=== PATIENT | male | born 1945 | race Caucasian/White ===

== ENCOUNTER 2019-06-05 14:55 | Inpatient (IN) ==
[2019-06-05] MEDS ORDERED: NS 1,000 ML IV ONE ×2 (15:14→16:34)
[2019-06-05 15:15] LABS: BASO# 0.02 X1000 (0.0-0.2); BASO% 0.1 % (0.0-0.8); EOS# 0.02 X1000 (0.0-0.7); EOS% 0.1 % (0.0-10.0); HEMATOCRIT 45.9 % (42.0-52.0); HEMOGLOBIN 15.1 g/dL (14.0-18.0); IMM GRAN# 0.03 X1000 (0.0-0.04); IMM GRAN% 0.2 % (0.0-0.5); LYMPH# 1.04 X1000 (1.2-3.4); LYMPH% 7.5 % (20.5-51.1); MCH 31.1 PG (27-31); MCHC 32.9 g/dL (33-37); MCV 94.4 FL (81-99); MONO# 0.87 X1000 (0.11-0.59); MONO% 6.3 % (1.7-9.3); MPV 8.6 FL (7.4-10.4); NEUT# 11.84 X1000 (1.4-6.5); NEUT% 85.8 % (42.2-75.2); PLT 340 X1000 (130-400); RBC 4.86 XMIL (4.7-6.1); RDW 12.2 % (11.5-14.5); WBC 13.82 X1000 (4.8-10.8)
[2019-06-05 15:19] LABS: INR 0.95; PROTIME 13.1 Seconds (11.0-16.0)
[2019-06-05 15:20] LABS: PTT 37.6 Seconds (22.3-41.8)
--- NOTE | 2019-06-05 15:27 | Diag Imaging Result Doc PS360 ---
EXAM: CT HEAD W/O CONTRAST - 06/05/2019 HISTORY: r/o stroke TECHNIQUE: CT head without contrast COMPARISON: None. FINDINGS: There are some generalized atrophic changes. There is no evidence of intracranial hemorrhage, mass effect or midline shift. There is mild ventricular asymmetry which likely relates to congenital/developmental variant. There is no evidence of infarct, although acute infarcts may not be immediately visible. There is no evidence of skull fracture. Visualized portions of paranasal sinuses and mastoid air cells appear clear except for small maxillary sinus mucus retention cysts. IMPRESSION: No visible acute intracranial abnormality. This exam was performed using automated exposure control, adjustment of mA or kV according to patient size, and/or use of iterative reconstruction technique. Electronically signed by Israel Garcias 06/05/2019 3:25 PM
[2019-06-05 15:38] LABS: AGAP 13; ALBUMIN 4.5 g/dL (3.5-5.0); ALKALINE PHOSPHATASE 84 U/L (32-122); BUN 13 mg/dL (8-22); CALCIUM 9.9 mg/dL (8.8-10.2); CHLORIDE 85 mmol/L (98-107); COSMO 260; CREATININE 0.6 mg/dL (0.7-1.2); ESTIMATED GFR > 60; GLUCOSE 148 mg/dL (70-104); GOT 17 U/L (10-34); GPT 10 U/L (10-44); SODIUM 128 mmol/L (136-145); TCO2 30 mmol/L (25-35); TOTAL PROTEIN 7.3 g/dL (6.3-8.3)
[2019-06-05 16:04] LABS: URINE SOURCE CATH
--- NOTE | 2019-06-05 16:06 | Diag Imaging Result Doc PS360 ---
EXAM: CHEST-1 VIEW - 06/05/2019 HISTORY: r/o stroke TECHNIQUE: One view chest COMPARISON: None. FINDINGS: Heart size is normal. There are interstitial infiltrates or scarring at the bilateral lung bases. There is also some alveolar infiltrate at the left base which is suspicious for pneumonia. There is a possible tiny left pleural effusion. There is no evidence of pneumothorax. IMPRESSION: Interstitial infiltrates or scarring at bilateral lung bases. Alveolar infiltrate at left base which is suspicious for pneumonia. Electronically signed by Israel Garcias 06/05/2019 4:04 PM
[2019-06-05 16:17] LABS: BILIRUBIN URINE NEGATIVE (NEGATIVE); BLOOD URINE NEGATIVE (NEGATIVE); COLOR YELLOW; GLUCOSE URINE NEGATIVE (NEGATIVE); KETONE URINE NEGATIVE (NEGATIVE); LEUKOCYTES URINE NEGATIVE (NEGATIVE); NITRITE URINE NEGATIVE (NEGATIVE); PROTEIN URINE NEGATIVE (NEGATIVE); SP GRAVITY URINE 1.013; TURBIDITY URINE CLEAR (CLEAR); UROBILINOGEN URINE NORMAL (NORMAL)
[2019-06-05 16:19] LABS: UR EPITHELIAL CELLS <10 /HPF (<10); URINE BACTERIA NEGATIVE /HPF; URINE RBC <10 /HPF (<10); URINE WBC <10 /HPF (<10)
[2019-06-05 16:33] LABS: UR AMPHETAMINES QUAL NONE DETECTED (NONE DETECT); UR BARBITUATES QUAL NONE DETECTED (NONE DETECT); UR BENZODIAZEPIN QUAL NONE DETECTED (NONE DETECT); UR CANNABINOIDS QUAL NONE DETECTED (NONE DETECT); UR COCAINE QUAL NONE DETECTED (NONE DETECT); UR METHADONE QUAL NONE DETECTED (NONE DETECT); UR METHAMPHETAMINE QUAL NONE DETECTED (NONE DETECT); UR OPIATES QUAL NONE DETECTED (NONE DETECT); UR OXYCODONE QUAL NONE DETECTED (NONE DETECT); UR PCP QUAL NONE DETECTED (NONE DETECT); UR PROPOXYPHENE QUAL NONE DETECTED (NONE DETECT); UR TCA QUAL NONE DETECTED (NONE DETECT)
[2019-06-05] MEDS ORDERED: ZOSYN 3.375 GM in NS 50 ML IV ONE (16:34)
--- NOTE | 2019-06-05 17:17 | EKG Report ---
Test Performed on : 06/05/2019 2:59:50 PM Test Reason : possible stroke Blood Pressure : / mmHG Vent. Rate : 084 BPM Atrial Rate : 084 BPM P-R Int : 146 ms QRS Dur : 088 ms QT Int : 382 ms P-R-T Axes : 084 069 055 degrees QTc Int : 451 ms Normal sinus rhythm. Normal ECG No previous ECGs available Confirmed by Art Marie MD ([id number]), makeup editor Luci Mejia ([id number]) on 08/01/2019 12:36:49 PM
[2019-06-06] MEDS: ZOSYN 3.375 GM in NS 50 ML IV SCH ×3 (10:31→20:45)
[2019-06-06 10:56] LABS: HEMOGLOBIN 14.2 g/dL (14.0-18.0); MCH 30.9 PG (27-31); MCV 93.7 FL (81-99); RBC 4.59 XMIL (4.7-6.1); WBC 9.35 X1000 (4.8-10.8)
[2019-06-06] MEDS ORDERED: ASPIRIN PO STA (11:28)
[2019-06-06 11:31] LABS: AGAP 12; BUN 8 mg/dL (8-22); CALCIUM 9.6 mg/dL (8.8-10.2); CHLORIDE 90 mmol/L (98-107); CHOLESTEROL 143 mg/dL (0-200); COSMO 253; CREATININE 0.5 mg/dL (0.7-1.2); ESTIMATED GFR > 60; GLUCOSE 92 mg/dL (70-104); HDL 61 mg/dL (35-55); LDL 66 mg/dL; POTASSIUM 4.3 mmol/L (3.5-5.1); SODIUM 127 mmol/L (136-145); TCO2 25 mmol/L (25-35); TRIGLYCERIDES 79 mg/dL (39-160); VLDL 16 mg/dL
--- NOTE | 2019-06-06 12:13 | Diag Imaging Result Doc PS360 ---
EXAM: MRI BRAIN W/WO CONTRAST 06/06/2019 HISTORY: cva TECHNIQUE: T1 sagittal, axial and post gadolinium-enhanced axial with coronal reformation, axial T2, FLAIR, DWI and coronal gradient echo. COMMENT: There is mild generalized cerebral atrophy. There is some motion artifact. There is no evidence of restricted diffusion. There are patchy areas of increased T2-weighted signal intensity in the periventricular white matter bilaterally and to some extent in the subcortical white matter of the frontal lobes bilaterally. There is no evidence of restricted diffusion. The postcontrast T1-weighted images are markedly degraded by patient motion. There is no evidence of abnormal gadolinium enhancement. IMPRESSION: Chronic ischemic microvascular changes. No evidence of acute disease. Electronically signed by Gustavo Montalvo 06/06/2019 12:11 PM
[2019-06-06] MEDS: POTASSIUM CHLORIDE 20 MEQ, MAGNESIUM SULFATE 2 GM, THIAMINE 100 MG, FOLIC ACID 1 MG, M.... IV SCH ×6 (13:00)
[2019-06-06] MEDS ORDERED: ZOFRAN IV PRN (14:01)
--- NOTE | 2019-06-06 14:35 | Vascular Study Report ---
EXAM: Carotid Ultrasound HISTORY: CVA TECHNIQUE: Grayscale, duplex, and color Doppler evaluation was performed of the carotid arteries bilaterally. Standard protocol. COMPARISON: None. FINDINGS: There is dense calcific atherosclerotic plaque at the bilateral bifurcations. There are no velocity elevations to suggest hemodynamically significant carotid artery stenosis. ICA/CCA ratios are within normal limits. Bilateral vertebral arterial flow is antegrade. IMPRESSION: No evidence for hemodynamically significant carotid artery stenosis. Estimated stenosis is less than 50% bilaterally. Electronically signed by Fabiana Plaza 06/06/2019 2:33 PM
[2019-06-06] MEDS: NICODERM PATCH TD SCH (16:03)
--- NOTE | 2019-06-06 16:54 | HISTORY AND PHYSICAL ---
CHIEF COMPLAINT: Weakness. HISTORY OF PRESENT ILLNESS: This is a patient who has not seen a physician since 2011. Apparently, he was diagnosed with prostate cancer then and he did not complete any treatment. They were supposed to do radiation treatment and he refused to be part of a study and he has not had any treatment or evaluation since then, but he came in with right facial droop, altered mental status, right sided weakness. The patient is still somewhat confused and slow to respond. He does have a history of alcoholism, but according to family has not drank since 2012. His symptoms as far as his neurological symptoms have completely resolved, although yesterday they were persistent, which prompted the admission for stroke. MRI obtained since that time is negative for stroke. He also has had some cough and rhonchorous breath sounds and he has pneumonia that he has been diagnosed with and was admitted for as well. PAST MEDICAL HISTORY: 1. Prostate cancer, which has not been evaluated. 2. Possible benign prostatic hypertrophy 3. I think he probably has some component of emphysema or COPD looking at his chest x-ray. 4. He has I would say fairly severe protein-calorie malnutrition. 5. History of alcohol use. SOCIAL HISTORY: He is a 30 pack-year here smoker, which he still smokes. No alcohol, but heavy use, quit in 2012. He lives with his sister, I think his primary caregiver. FAMILY HISTORY: Negative. REVIEW OF SYSTEMS: Denies chest pain, cough, pleurisy. ALLERGIES: No known drug. PHYSICAL EXAMINATION: Blood pressure 153/69, heart rate 97, respiratory 16, temperature 97.8 degrees 95%. GENERAL: A white male in no acute distress. HEENT: Normocephalic. Eye exam: Pupils equal, round, reactive to light extraocular moves were intact. He has bilateral arcus senilis Ear nose and throat exam: Showed moist mucous membranes. NECK: Supple. CARDIOVASCULAR: Regular rate and rhythm. PULMONARY: Clear to auscultation. GI: Soft, nontender, nondistended. Bowel sounds present. SKIN: Skin is thin. LABORATORY DATA: White count 9, hemoglobin and hematocrit 14 and 43, platelets 324,000. Sodium is 127. ASSESSMENT: A 74-year-old male: 1. Transient ischemic attack. Continue treatment and will continue to follow. 2. Hypertension. We will we will start to work on blood pressure control because he it is just a transient ischemic attack and not a cerebrovascular accident. 3. Hyponatremia. He has a history of alcohol abuse. It is certainly possible this could be surreptitious alcohol. We will look at that, but his family is pretty adamant that he has not been abusing alcohol. It could just be related to malnutrition because he does not look like he eats 1 meal a day may be. 4. Left lower lobe pneumonia, possible aspiration. He is on Zosyn. Continue breathing treatments. 5. Hyperglycemia- 92 today. We will continue to monitor his blood sugars and see how he does. 6. Cachexia, severe protein calorie malnutrition, weight loss. He has lost reportedly at least 15 pounds, although he looks like he has lost, he weighed in at 125 and then miraculously went up to 154, so difficult to ascertain what happened there but he reports being as high as 200 and now he is down to 154, so it is possible he has lost up to 50 pounds in an undescribed amount of time at least a year or so. So I am concerned that his malignancy which was never treated is rearing its ugly head. So, we will get a scan of his chest, abdomen and pelvis, check a PSA level and follow. This is a service admission. cc: Jeff Crabtree MD MTDD
--- NOTE | 2019-06-06 18:26 | Diag Imaging Result Doc PS360 ---
EXAM: CT THORAX/ABD/PELVIS W/CON 06/06/2019 HISTORY: weight loss, cachexia, dysphagia TECHNIQUE: This exam was performed using automated exposure control, adjustment of mA or kV according to patient size, and/or use of iterative reconstruction technique. COMMENT: Thorax: There is COPD. There is pleural calcification posteriorly on the right. There is ill-defined opacity posteriorly in the right upper lobe inferiorly. There is also ill-defined opacity in the base of the left lower lobe. There are no previous studies available for comparison. There are some nonspecific aorticopulmonary window nodes. There is no evidence of hilar adenopathy or abnormal fluid collections. The adrenal glands are not enlarged. The regional skeleton appears to be intact. ABDOMEN: The aorta is partially calcified without evidence of aneurysm. The mesenteric and renal arteries are patent. There is a small cyst posteriorly in the right hepatic lobe. There are no gallstones. There are number of small cysts in the left lobe of the liver as well. The kidneys are without evidence of hydronephrosis or mass. The spleen is not enlarged. There is some stool present in the colon. The small bowel is not distended. There is no evidence of significant adenopathy. The pancreas is grossly normal in appearance. Pelvis: There is a fairly large amount of stool in the rectum. The urinary bladder contains an air-fluid level and there is a Walsh catheter. The prostate gland is enlarged measuring 5.6 x 7 cm in the axial plane. There is a bone island in the proximal left femur. There are mild degenerative disc and facet changes in the lumbar spine. IMPRESSION: COPD with pneumonia in the right upper and left lower lobes. Advise follow-up until clear. Constipation. Electronically signed by Gustavo Montalvo 06/06/2019 6:24 PM
--- NOTE | 2019-06-06 20:16 | ECHO REPORT ---
ORDER DATE: 06/06/2019 INDICATIONS: CVA. FINDINGS: 1. Right atrium appears normal in size. 2. Normal RV size and systolic function. 3. No significant pulmonic insufficiency. 4. Normal left atrial size with a dimension of 2.7 cm. 5. There is a suggestion of mild prolapse of the anterior mitral leaflet with thickening in the distal leaflet. Mild mitral regurgitation. There is some redundancy of the subvalvular chordal apparatus. No mitral stenosis. 6. Normal LV size with an end-diastolic dimension of 4.4 cm. Normal wall thicknesses with a posterior and interventricular septal wall thickness of 0.9 cm each. Normal LV systolic function. Estimated EF of 55% to 60% percent with normal wall motion. 7. Aortic valve opens well. No evidence of stenosis or insufficiency. 8. The aorta appears normal in visualized segments. 9. No pericardial effusion seen. cc: MD Nika Ceron CRNP
[2019-06-06] MEDS: LIPITOR PO SCH (20:44)
[2019-06-07] MEDS: ZOSYN 3.375 GM in NS 50 ML IV SCH ×4 (03:36→21:11)
[2019-06-07] MEDS: NS 1,000 ML IV SCH ×3 (03:38→17:13)
[2019-06-07] MEDS: TYLENOL PO PRN (04:27)
[2019-06-07 07:21] LABS: BASO# 0.03 X1000 (0.0-0.2); BASO% 0.3 % (0.0-0.8); EOS# 0.14 X1000 (0.0-0.7); EOS% 1.4 % (0.0-10.0); HEMATOCRIT 39.8 % (42.0-52.0); HEMOGLOBIN 12.7 g/dL (14.0-18.0); IMM GRAN# 0.01 X1000 (0.0-0.04); IMM GRAN% 0.1 % (0.0-0.5); LYMPH# 1.16 X1000 (1.2-3.4); LYMPH% 11.4 % (20.5-51.1); MCH 30.5 PG (27-31); MCHC 31.9 g/dL (33-37); MCV 95.4 FL (81-99); MONO# 0.97 X1000 (0.11-0.59); MONO% 9.5 % (1.7-9.3); MPV 8.8 FL (7.4-10.4); NEUT# 7.91 X1000 (1.4-6.5); NEUT% 77.3 % (42.2-75.2); PLT 323 X1000 (130-400); RBC 4.17 XMIL (4.7-6.1); RDW 12.3 % (11.5-14.5); WBC 10.22 X1000 (4.8-10.8)
[2019-06-07 07:34] LABS: AGAP 9; BUN 10 mg/dL (8-22); CALCIUM 9.1 mg/dL (8.8-10.2); CHLORIDE 94 mmol/L (98-107); COSMO 261; CREATININE 0.5 mg/dL (0.7-1.2); ESTIMATED GFR > 60; GLUCOSE 88 mg/dL (70-104); POTASSIUM 4.3 mmol/L (3.5-5.1); SODIUM 131 mmol/L (136-145); TCO2 28 mmol/L (25-35)
[2019-06-07] MEDS: ASPIRIN PO SCH (08:55)
[2019-06-07] MEDS: NICODERM PATCH TD SCH (08:55)
[2019-06-07] MEDS: POTASSIUM CHLORIDE 20 MEQ, MAGNESIUM SULFATE 2 GM, THIAMINE 100 MG, FOLIC ACID 1 MG, M.... IV SCH ×6 (09:53)
[2019-06-07 15:12] LABS: OCCULT BLOOD 1 NEGATIVE (NEGATIVE)
[2019-06-07] MEDS ORDERED: IMODIUM PO PRN (17:16)
[2019-06-07] MEDS: LIPITOR PO SCH (20:20)
[2019-06-08] MEDS: NS 1,000 ML IV SCH (01:10)
--- NOTE | 2019-06-08 01:10 | PROGRESS NOTE ---
DATE: 06/07/2019 SUBJECTIVE: The patient notes that he is feeling better. He states he is still tired and fatigued. Denies any chest pain or palpitations. OBJECTIVE: Temperature 97.8 degrees, pulse 86, respiratory rate 18, BP 156/81. General: The patient is in no current respiratory distress. He is awake but not oriented. HEENT: Normocephalic. Neck supple. Cardiovascular: Regular rate. No murmurs. Chest clear, nonlabored. Abdomen is soft, nondistended. Extremities: Moves all extremities. ASSESSMENT AND PLAN: 1. Hyponatremia. We are going to check a urine sodium and urine creatinine to rule out syndrome of inappropriate antidiuretic hormone secretion. He certainly could have this secondary to his prostate cancer. 2. Prostate cancer. The patient is recalcitrant to any treatment; therefore, we are not going to consult Hematology at the current time, as the patient states that he is not going to have any treatment for such. 3. We are going to recheck his sodium in the a.m. and follow. cc: Franck Galeana MD
[2019-06-08] MEDS: TYLENOL PO PRN (01:43)
[2019-06-08] MEDS: ZOSYN 3.375 GM in NS 50 ML IV SCH (03:10)
[2019-06-08] MEDS: POTASSIUM CHLORIDE 20 MEQ, MAGNESIUM SULFATE 2 GM, THIAMINE 100 MG, FOLIC ACID 1 MG, M.... IV SCH ×6 (05:33)
[2019-06-08] MEDS ORDERED: ZITHROMAX PO SCH (09:00)
[2019-06-08] MEDS ORDERED: OMNICEF PO SCH (09:00)
[2019-06-08] MEDS: NICODERM PATCH TD SCH (10:06)
[2019-06-08] MEDS: ASPIRIN PO SCH (10:06)
[2019-06-08 12:11] VITALS: BP 170/76
--- NOTE | 2019-06-09 12:51 | DISCHARGE SUMMARY ---
ADMISSION DATE: 06/05/2019 DISCHARGE DATE: 06/08/2019 ADDENDUM: Patient was seen and examined by myself. Full note dictated and discussed with nurse practitioner. Patient's hyponatremia has improved, currently at 131. Most likely, this is SIADH. He does have nodules in his right upper lobe and left lower lobe that are ill-defined. I am certainly concerned that these may be metastatic from his untreated prostate cancer. I discussed this 0with the patient and he declines any further workup. He declines being referred to oncology. He declines treatment for his prostate cancer. His PSA is currently 44. He is aware. cc: Franck Galeana MD
--- NOTE | 2019-06-09 13:59 | DISCHARGE SUMMARY ---
ADMISSION DATE: 06/05/2019 DISCHARGE DATE: 06/08/2019 DIAGNOSES: 1. Transient ischemic attack. 2. Hypertension. 3. Hyponatremia, resolved. 4. Left lower lobe pneumonia, possibly aspiration. 5. Hyperglycemia. 6. Cachexia with severe protein calorie malnutrition and weight loss. 7. History of prostate cancer in a patient that refused treatment, diagnosed in 2011 with a prostate-specific antigen of 44.7 this hospitalization. DIAGNOSTICS: 1. CT of the head revealed no visible acute intracranial abnormality. 2. Bilateral carotid Doppler, no evidence of hemodynamically significant carotid artery stenosis. Estimated stenosis is less than 50% bilateral. 3. Brain MRI, chronic ischemic microvascular changes. No evidence of acute disease. 4. CT of the chest, abdomen, and pelvis revealed COPD with pneumonia in the right upper and left lower lobes. Pelvis with a fairly large amount of stool in the rectum. Urinary bladder contains an air-fluid level. There is a Walsh catheter. Prostate gland measures 5.6 x 7 cm. There is a bone island in the proximal left femur. Abdomen, the aorta is partially calcified without evidence of aneurysm. Mesenteric and renal arteries are patent. There is a small cyst posteriorly in the right hepatic lobe. There are no gallstones. Kidneys are without evidence of hydronephrosis or mass. Spleen is not enlarged. There is stool present in the colon. 5. Echocardiogram reveals ejection fraction of 55 to 60 percent with normal wall motion, normal LV systolic function. HOSPITAL COURSE: Mr. Harvey presented to the emergency room with weakness, being confused, and slow to respond. He had a right facial droop with right-sided weakness in the emergency room but this resolved shortly after arriving at the hospital and has not recurred. Family stated that he was back to his baseline on the . It is noted that he has a history of prostate cancer, being reportedly diagnosed in 2011. He refused treatment and has not followed up with a physician for anything since. He does have a history of alcoholism with his last drink being in 2012. He was given IV hydration and sodium increased from 128 to 131. He was allowed permissive hypertension with blood pressures being in the 140s to 160s. He was diagnosed with pneumonia per CT scan with initial antibiotic coverage of Zosyn. He will be discharged on Omnicef and azithromycin. PSA on the was 44. We did discuss this with the patient and he continues to refuse treatment. He does not want to see a urologist nor does he want to see a medical doctor at this time. Family members are present and they do agree with his decision. He initially had a Walsh catheter placed. This was discontinued and he has voided without any difficulty. He was evaluated by physical therapy. He ambulated 20 feet in the room. Physical therapy did not anticipate any needs at discharge. The patient lives with his sister and is going back to her home. The room air saturation was 82%. He qualified for home O2. This has been delivered. We did discuss that he does not need to smoke, no one needs to smoke with oxygen in use in the home. They have been instructed that if anyone wants to smoke, they need to smoke outside, away from oxygen and his oxygen tanks. They all did voice understanding. DISCHARGE VITAL SIGNS: Blood pressure is 170/70, with a heart rate of 90, respirations 16, temperature is 97.6 degrees oral, with O2 saturations of 94 to 96 percent on 3 L nasal cannula, 82% on room air. DISCHARGE PHYSICAL EXAMINATION: Cardiovascular: Regular rate and rhythm. S1 and S2 appreciated. He has no lower extremity edema. Calves are nontender. Peripheral pulses are palpable x4 extremities. Pulmonary: Breath sounds are clear. No increased work of breathing noted. Chest rises and falls symmetric with respirations. Chest wall is nontender to palpation. Gastrointestinal: Abdomen is soft, nontender, nondistended. Bowel sounds in all 4 quadrants. Neurologic: He is alert and oriented x3. DISCHARGE MEDICATIONS: 1. Zithromax 250 mg p.o. daily x4 days. 2. Omnicef 300 mg p.o. b.i.d. x5 days. 3. Temitope-D 1 p.o. daily FOLLOWUP: He has been given the number to the physician referral line to call to obtain a list of providers that are currently taking new patients. He has been encouraged to call and schedule an appointment in the next 1 to 3 weeks. He has been instructed to call to be seen sooner or return to the ER for any syncope, dizziness, chest pain, palpitations, shortness of breath, temperature greater than 101, any hemoptysis, any nausea, vomiting, diarrhea, constipation, black or bloody vomitus or stools, any hematuria, dysuria, frequency, urgency, any change in mental status, or for any questions or concerns that he may have. He is being discharged home in stable condition with his sister and niece. Oxygen tank has been delivered by [facility], [place]. TIME SPENT: This is a greater than 30 minute discharge. Dictated by WANDA Burns for Franck Galeana MD cc: WANDA Burns MD [facility]
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
== END 2019-06-08 16:15 | disposition home or self-care (01) | DRG 177 ==
LOC: P.ED 14:55 → SUATTDRO 18:00 → P.MEDSURG 18:00
PROVIDERS: ATTEND Family Medicine